=== PATIENT | male | born 1960 | race African-American/Black ===

== ENCOUNTER 2017-08-21 22:59 | Emergency (ER) | payer OTHER ==
[2017-08-21 23:20] LABS: BASOPHIL (%) 0.1 % (0-1); EOSINOPHIL COUNT 0.2 K/uL (0-0.3); HEMATOCRIT 35.8 % (38.0-50.0); HEMOGLOBIN 12.8 G/DL (12.5-16.6); IMMATURE GRANULOCYTE (%) 0.3 % (0.0-0.7); LYMPHOCYTE (%) 38.5 % (15-42); LYMPHOCYTE COUNT 2.9 K/uL (1.0-2.8); MCHC 35.8 G/DL (30.0-36.0); MCV 86.7 FL (86-99); MONOCYTE (%) 8.6 % (3-12); MONOCYTE COUNT 0.6 K/uL (0-0.8); NEUTROPHIL (%) 50.5 % (45-76); NEUTROPHIL COUNT 3.8 K/uL (1.8-6.4); PLATELET COUNT 186 K/uL (156-360); RBC DIS.WIDTH-CV 13.2 % (11.8-14.6); RBC DIS.WIDTH-SD 41.2 % (39-53); RED BLOOD COUNT 4.13 M/uL (4.00-5.50); WHITE BLOOD COUNT 7.4 K/uL (4.1-10.2)
[2017-08-21 23:27] LABS: AMYLASE 65 IU/L (1-118); CHLORIDE 104 mEq/L (99-109)
[2017-08-21 23:28] LABS: POTASSIUM 3.7 mEq/L (3.7-5.4); SODIUM 137 mEq/L (136-147)
[2017-08-21 23:29] LABS: GLUCOSE 258 mg/dL (70-99)
[2017-08-21 23:32] LABS: SERUM ETHYL ALCOHOL < 10 mg/dL
[2017-08-21 23:33] LABS: CREATININE 1.2 mg/dL (0.6-1.3); GFR ESTIMATE (CALCULATED) > 59 mL/min/ (58.99-99999)
[2017-08-21 23:34] LABS: UREA NITROGEN (BUN) 17 mg/dL (9-23)
[2017-08-21 23:36] LABS: LIPASE 27 U/L (1.0-51.0)
== END 2017-08-22 01:07 | disposition home or self-care (01) ==
LOC: EME 22:59 → TRA 22:59 → EME 08-22 01:07
PROVIDERS: Emergency Medicine
DX: S27.321A Contusion of lung, unilateral, initial encounter (principal); S60.811A Abrasion of right wrist, initial encounter; S80.811A Abrasion, right lower leg, initial encounter; S16.1XXA Strain of muscle, fascia and tendon at neck level, initial encounter; S39.012A Strain of muscle, fascia and tendon of lower back, initial encounter; S30.1XXA Contusion of abdominal wall, initial encounter; E11.65 Type 2 diabetes mellitus with hyperglycemia; V49.40XA Driver injured in collision with unspecified motor vehicles in traffic accident, initial encounter
CPT/HCPCS: 70450; 71260; 72125; 72129; 72132; 73100; 73560; 74177; 80047; 80048; 81003; 82150; 83690; 85025; 86850; 86900; 86901; 90832; 99281; 99285; G0480